=== PATIENT | female | born 1970 | race Caucasian/White ===

== ENCOUNTER 2016-12-15 12:22 | Emergency (ER) | payer OTHER ==
[2016-12-15 13:17] LABS: BILIRUBIN NEGATIVE (NEGATIVE); BLOOD TRACE-INTACT Ery/uL (NEGATIVE); CLARITY SLIGHTLY HAZY (CLEAR); COLOR YELLOW (YELLOW); GLUCOSE (U) NORMAL (NORMAL); KETONE (U) NEGATIVE (NEGATIVE); LEUKOCYTES TRACE Leu/uL (NEGATIVE); NITRITE NEGATIVE (NEGATIVE); PROTEIN NEGATIVE (NEGATIVE); SPECIFIC GRAVITY <=1.005 (1.001-1.030); UROBILINOGEN 0.2 mg/dL (0.2-1.0); pH 5.5 (5.0-9.0)
[2016-12-15 13:31] LABS: BACTERIA TRACE; SQUAMOUS EPITHELIAL CELLS RARE
[2016-12-15 13:45] LABS: BASOPHIL 0.4 % (0-2); EOSINOPHIL 1.2 % (0-5); HCT 37.9 % (37.0-47.0); HGB 13.1 g/dl (12.5-16.0); LYMPHOCYTE 25.8 % (15-48); MCH 30.6 pg (25.0-31.0); MCHC 34.6 g/dL (32.0-36.0); MCV 88.6 fL (78.0-100.0); MONOCYTE 5.6 % (0-12); MPV 9.2 fL (6.0-9.5); PLT 404 K/uL (150-400); RBC 4.28 M/uL (4.20-5.40); RDW 12.6 % (11.5-14.0); WBC 7.7 K/uL (4.0-10.5)
[2016-12-15 14:10] LABS: ALBUMIN 4.2 g/dL (3.5-5.0); BILIRUBIN - TOTAL 0.3 mg/dL (0.1-1.0); CREATININE 0.7 mg/dL (0.5-1.0); GLOBULIN (CALCULATION) 3.3 g/dL (2.2-4.2); POTASSIUM 3.8 mmol/L (3.5-5.1); TOTAL PROTEIN 7.5 g/dL (6.4-8.3)
== END 2016-12-15 16:07 | disposition home or self-care (01) ==
LOC: FER 12:22
PROVIDERS: Emergency Medicine
DX: K57.90 Diverticulosis of intestine, part unspecified, without perforation or abscess without bleeding (principal); K76.0 Fatty (change of) liver, not elsewhere classified; M54.5 Low back pain; R82.90 Unspecified abnormal findings in urine; Z87.19 Personal history of other diseases of the digestive system; Z88.5 Allergy status to narcotic agent; Z88.6 Allergy status to analgesic agent; Z90.49 Acquired absence of other specified parts of digestive tract
CPT/HCPCS: 36415; 80053; 81001; 85025; 87088; J1170; J1885; J2405

== ENCOUNTER 2020-08-18 12:56 | Emergency (ER) | payer OTHER ==
[2020-08-18 16:45] LABS: BASOPHIL 0.4 % (0-2); EOSINOPHIL 0.1 % (0-5); HCT 40.9 % (37.0-47.0); HGB 13.8 g/dl (12.5-16.0); LYMPHOCYTE 19.5 % (15-48); MCH 30.6 pg (25.0-31.0); MCHC 33.7 g/dL (32.0-36.0); MCV 90.7 fL (78.0-100.0); MONOCYTE 4.4 % (0-12); MPV 9.6 fL (6.0-9.5); NEUTROPHIL 75.3 % (41-80); NRBC 0; PLT 381 K/uL (150-400); RBC 4.51 M/uL (4.20-5.40); RDW 13.2 % (11.5-14.0); WBC 11.7 K/uL (4.0-10.5)
[2020-08-18 17:12] LABS: ALBUMIN 3.8 g/dL (3.4-5.0); BILIRUBIN - TOTAL 0.6 mg/dL (0.2-1.0); BUN/CREAT RATIO (CALC) 11.8 RATIO; CREATININE 0.68 mg/dL (0.51-0.95); POTASSIUM 3.5 mmol/L (3.5-5.1); TOTAL PROTEIN 7.8 g/dL (6.4-8.2)
== END 2020-08-18 18:19 | disposition home or self-care (01) ==
LOC: FER 12:56
PROVIDERS: Nurse Practitioner Family
DX: R07.89 Other chest pain (principal); R10.84 Generalized abdominal pain; M54.5 Low back pain; K21.9 Gastro-esophageal reflux disease without esophagitis; Z87.891 Personal history of nicotine dependence; Z87.39 Personal history of other diseases of the musculoskeletal system and connective tissue; Z98.1 Arthrodesis status
CPT/HCPCS: 36415; 71046; 80053; 84484; 85025; 93005

== ENCOUNTER 2021-03-17 09:28 | Emergency (ER) | payer OTHER ==
[2021-03-17 10:11] LABS: BASOPHIL 0.7 % (0-2); EOSINOPHIL 0.2 % (0-5); HCT 42.2 % (37.0-47.0); HGB 14.1 g/dl (12.5-16.0); MCHC 33.4 g/dL (32.0-36.0); MCV 89.8 fL (78.0-100.0); MONOCYTE 7.6 % (0-12); MPV 9.8 fL (6.0-9.5); NEUTROPHIL 40.1 % (41-80); NRBC 0; PLT 229 K/uL (150-400); RDW 12.2 % (11.5-14.0); WBC 4.1 K/uL (4.0-10.5)
[2021-03-17 10:16] LABS: INR 0.94 (0.9-1.2); PTT 30.2 SECONDS (24.4-34.7)
[2021-03-17 10:18] LABS: LYMPHOCYTE 50.9 % (15-48)
[2021-03-17 10:24] LABS: ALBUMIN 3.3 g/dL (3.4-5.0); BILIRUBIN - TOTAL 0.4 mg/dL (0.2-1.0); BUN/CREAT RATIO (CALC) 11.3 RATIO; CREATININE 0.71 mg/dL (0.51-0.95); GLOBULIN (CALCULATION) 3.6 g/dL; POTASSIUM 3.5 mmol/L (3.5-5.1); TOTAL PROTEIN 6.9 g/dL (6.4-8.2)
[2021-03-17] MEDS ORDERED: PREDNISONE 20MG20 MG PO ×2 (12:17→12:38)
[2021-03-17] MEDS ORDERED: ALLERGY RELIEF5 MG PO ×2 (12:17→12:38)
[2021-03-17] MEDS ORDERED: ONDANSETRON ODT4 MG PO ×2 (12:18→12:38)
== END 2021-03-17 12:48 | disposition home or self-care (01) ==
LOC: FER 09:28
PROVIDERS: Internal Medicine
DX: U07.1 COVID-19 (principal); J45.909 Unspecified asthma, uncomplicated; I48.91 Unspecified atrial fibrillation; Z88.6 Allergy status to analgesic agent; Z87.891 Personal history of nicotine dependence
CPT/HCPCS: 36415; 71045; 71275; 80053; 84484; 85025; 85610; 85730; 93005; J1100; Q9967

== ENCOUNTER 2021-07-12 19:50 | Emergency (ER) | payer OTHER ==
[~2021-07-12 19:50] MED LIST: ALLERGY RELIEF5 MG PO; ONDANSETRON ODT4 MG PO; PREDNISONE 20MG20 MG PO
[2021-07-12 20:51] LABS: BASOPHIL 0.4 % (0-2); EOSINOPHIL 0.4 % (0-5); HCT 41.1 % (37.0-47.0); HGB 13.8 g/dl (12.5-16.0); LYMPHOCYTE 34.6 % (15-48); MCH 30.3 pg (25.0-31.0); MCHC 33.6 g/dL (32.0-36.0); MCV 90.1 fL (78.0-100.0); MONOCYTE 6.5 % (0-12); MPV 9.6 fL (6.0-9.5); NEUTROPHIL 57.8 % (41-80); NRBC 0; PLT 331 K/uL (150-400); RBC 4.56 M/uL (4.20-5.40); RDW 11.5 % (11.5-14.0); WBC 7.1 K/uL (4.0-10.5)
[2021-07-12 21:30] LABS: CORONAVIRUS 2019 SARS-COV-2 NEGATIVE (NEGATIVE); INFLUENZA A NAA NEGATIVE (NEGATIVE)
[2021-07-12 21:49] LABS: CREATININE 0.75 mg/dL (0.51-0.95); POTASSIUM 3.8 mmol/L (3.5-5.1)
[2021-07-12] MEDS ORDERED: VENTOLIN HFA IN18 GM INH (22:07)
== END 2021-07-12 22:30 | disposition home or self-care (01) ==
LOC: FER 19:50
PROVIDERS: Internal Medicine
DX: M94.0 Chondrocostal junction syndrome [Tietze] (principal); Z20.822 Contact with and (suspected) exposure to COVID-19; Z88.6 Allergy status to analgesic agent
CPT/HCPCS: 36415; 71045; 80048; 83690; 84484; 85025; 85379; 93005; J1100; U0002